=== PATIENT | female | born 1985 ===

== ENCOUNTER 2018-05-17 18:47 | Emergency (ER) | payer SELFPAY ==
[2018-05-17 19:08] VITALS: BMI 17.6
[2018-05-17 19:10] VITALS: BP 125/76; PULSE 98; TEMP 99.8; O2SAT 100
[2018-05-17] MEDS ORDERED: Tmp-Smz 800 mg-160 mg DS Tab PO SCH (19:45)
[2018-05-17] MEDS ORDERED: Tmp-Smz 800 mg-160 mg DS Tab ONE (19:46)
[2018-05-17] MEDS ORDERED: Bacitracin 500 Units/gm Oint Foilpak UD ONE (19:47)
--- NOTE | 2018-05-17 20:22 | C.PDOC ---
History Of Present Illness 32 y/o female presents to the ER complaining of insect bite in left forearm. Patient states that she has swelling and redness since last night. Denies having fever and chills. Time Seen by Provider: 05/17/18 19:28 Chief Complaint (Nursing): Bite History Per: Patient History/Exam Limitations: no limitations Onset/Duration Of Symptoms: Days Current Symptoms Are (Timing): Still Present Severity: Moderate Past Medical History Reviewed: Historical Data, Nursing Documentation, Vital Signs Vital Signs: Last Vital Signs Temp 99.8 F H 05/17/18 19:09 Pulse 98 H 05/17/18 19:09 Resp 17 05/17/18 19:09 BP 125/76 05/17/18 19:09 Pulse Ox 100 05/17/18 19:09 - Medical History PMH: No Chronic Diseases Surgical History: No Surg Hx Family History: States: No Known Family Hx - Social History Hx Alcohol Use: No Hx Substance Use: No - Immunization History Hx Tetanus Toxoid Vaccination: No Hx Influenza Vaccination: No Hx Pneumococcal Vaccination: No Review Of Systems Except As Marked, All Systems Reviewed And Found Negative. Constitutional: Negative for: Fever, Chills Skin: Positive for: Other (insect bite to left forearm) Physical Exam - Physical Exam Appears: Non-toxic, No Acute Distress Skin: Warm, Dry, Other (left volar wrist: 5 cm area of erythema, mild induration, point of bite max is warm and tender to palpation) Head: Atraumatic, Normacephalic Eye(s): bilateral: Normal Inspection Nose: Normal Oral Mucosa: Moist Neck: Supple Chest: Symmetrical Cardiovascular: Rhythm Regular Respiratory: Normal Breath Sounds, No Rales, No Rhonchi, No Wheezing Neurological/Psych: Oriented x3, Normal Speech ED Course And Treatment O2 Sat by Pulse Oximetry: 100 (RA) Pulse Ox Interpretation: Normal Progress Note: Patient treated with Bactrim PO. Bactroban ointment applied to area. Patient has been discharged and instructed to follow up with PMD in 1-2 days. Disposition - Disposition Referrals: [facility] [Outside] Disposition: HOME/ ROUTINE Disposition Time: 20:19 Condition: GOOD Additional Instructions: Follow up with PMD within 1-2 days. Return to ED if feel worse. Prescriptions: Sulfamethoxazole/Trimethoprim [Bactrim DS 800 mg-160 mg] 1 tab PO BID #14 tab Mupirocin 2% Ointment [Bactroban Ointment] 1 appl TP BID #1 tube Acetaminophen [Tylenol 325mg tab] 2 tab PO Q6 #50 tab Instructions: Insect Bites and Stings (DC) Forms: Loop (Bangladeshi) Print Language: HUNGARIAN - Clinical Impression Clinical Impression: Insect bite (nonvenomous) of left forearm, initial encounter - PA / PHYSICAL BIOCHEMIST / Resident Statement MD/DO has reviewed & agrees with the documentation as recorded. - Scribe Statement The provider has reviewed the documentation as recorded by the Ebonyibe Marielos Dorantes Provider Attestation All medical record entries made by the Ebonyibmasood were at my direction and personally dictated by me. I have reviewed the chart and agree that the record accurately reflects my personal performance of the history, physical exam, medical decision making, and the department course for this patient. I have also personally directed, reviewed, and agree with the discharge instructions and disposition.
[2018-05-17 21:03] VITALS: RESP 20
== END 2018-05-17 20:41 | disposition home or self-care (01) ==
LOC: C.ER 18:47
DX: S50.862A Insect bite (nonvenomous) of left forearm, initial encounter (principal); W57.XXXA Bitten or stung by nonvenomous insect and other nonvenomous arthropods, initial encounter